=== PATIENT | male | born 1960 | race African-American/Black ===

== ENCOUNTER 2023-12-14 13:44 | Emergency (ER) | payer OTHER ==
[~2023-12-14] VITALS: Ht 180.3 cm; Wt 117.9 kg
[2023-12-14 14:03] VITALS: TEMP 98.3
[2023-12-14] MEDS: AMOXICILLIN/CLAVULANATE K 875 MG TAB PO ONE (14:47)
[2023-12-14 14:49] VITALS: PULSE 65; RESP 18
[2023-12-14] MEDS: ALBUTEROL/IPRATROPIUM 3 ML NEB NEB ONE (14:49)
[2023-12-14] MEDS ORDERED: CORICIDIN COLD1 EACH PO (15:20)
[2023-12-14] MEDS ORDERED: AMOXICILLIN500 MG PO (15:20)
[2023-12-14] MEDS ORDERED: VENTOLIN HFA18 GM INH (15:21)
[2023-12-14 15:50] VITALS: PULSE 65; RESP 18; O2SAT 95
== END 2023-12-14 15:45 | disposition home or self-care (01) ==
LOC: FSED 13:55
DX: R05.9 Cough, unspecified (principal); J06.9 Acute upper respiratory infection, unspecified; J40 Bronchitis, not specified as acute or chronic; E78.00 Pure hypercholesterolemia, unspecified; Z11.52 Encounter for screening for COVID-19
CPT/HCPCS: 0223U; 87400; 99283